=== PATIENT | male | born 1975 | race Caucasian/White ===

== ENCOUNTER 2016-09-30 08:29 | Day surgery (SDC) | payer BC ==
--- NOTE | ~2016-09-30 | EGD ---
EGD REPORT [facility] [address] [id number] NAME: MURALI ESPINOSA : [birth year] [place]US : [place] [facility] [place] [id number] AGE: 40 ADM/REG DATE : 09/30/16 MR#: [id number] REPORT SERV DATE: 09/30/16 DICTATED BY: MARYCRUZ THURSTON DATE: 09/30/16 REPORT STATUS : Draft TRANSCRIBED BY: [employer] DATE: 09/30/16 Endoscopy Center Patient Name: Murali Espinosa Date of : 1975 Attending MD: MARYCRUZ THURSTON MD Procedure Date No Time: 09/30/2016 Procedure: Colonoscopy Indications: Rectal bleeding, Iron deficiency anemia, FH of Colon Cancer -distant relative, Personal history of malignant neoplasm of the colon Referring MD: Blake Kearney Medicines: as per anesthesia Complications: No immediate complications. Procedure: Pre-Anesthesia Assessment: - ASA Grade Assessment: II - A patient with mild systemic disease. After I obtained informed consent, the scope was passed under direct vision. Throughout the procedure, the patient's blood pressure, pulse, and oxygen saturations were monitored continuously. The PCF [id number] was introduced through the anus and advanced to the cecum, identified by appendiceal orifice and ileocecal valve. The colonoscopy was performed without difficulty. The patient tolerated the procedure. The quality of the bowel preparation was adequate to identify polyps. Findings: The perianal and digital rectal examinations were normal. There was evidence of a prior end-to-end colo-colonic anastomosis in the proximal descending colon. This was patent. This was characterized by healthy appearing mucosa. This was traversed. Internal hemorrhoids were found during endoscopy and were mild. Impression: - Patent end-to-end colo-colonic anastomosis. - Internal hemorrhoids. Recommendation: - Repeat colonoscopy in 3 years for surveillance. Procedure Code(s): --- Professional --- 33325, Colonoscopy, flexible, proximal to splenic flexure; diagnostic, with or without collection of specimen(s) by brushing or washing, with or without colon decompression (separate procedure) Diagnosis Code(s): --- Professional --- EGD REPORT [facility] [address] [id number] NAME: MURALI ESPINOSA : [birth year] [place]US : [place] [facility] [place] [id number] AGE: 40 ADM/REG DATE : 09/30/16 MR#: [id number] REPORT SERV DATE: 09/30/16 DICTATED BY: MARYCRUZ THURSTON DATE: 09/30/16 REPORT STATUS : Draft TRANSCRIBED BY: [employer] DATE: 09/30/16 Z98.0, Intestinal bypass and anastomosis status K64.8, Other hemorrhoids K62.5, Hemorrhage of anus and rectum D50.9, Iron deficiency anemia, unspecified Z80.0, Family history of malignant neoplasm of digestive organs Z85.038, Personal history of other malignant neoplasm of large intestine CPT copyright 2013 [employer]. All rights reserved. The codes documented in this report are preliminary and upon control systems specialist review may be revised to meet current compliance requirements. MARYCRUZ THURSTON MD 09/30/2016 11:06 AM This report has been signed electronically. Number of Addenda: 0 Note Initiated On: 09/30/2016 8:08 AM Scope Withdrawal Time 0 hours 9 minutes 24 seconds [address] [id number]
[~2016-09-30 08:29] MED LIST: ATEN25 PO; CALTRA600D PO; HYDROCHLOROT50 MG PO; LIPITOR20 PO; VITAMIN D31000 UNIT PO
== END 2016-09-30 23:59 | disposition home or self-care (01) ==
LOC: DMU 08:29
PROVIDERS: Internal Medicine Gastroenterology
PROC: 0DJD8ZZ Inspection of Lower Intestinal Tract, Via Natural or Artificial Opening Endoscopic (ICD-10-PCS; principal; 2016-09-30 08:00)
DX: K64.8 Other hemorrhoids (principal); D50.9 Iron deficiency anemia, unspecified; E78.00 Pure hypercholesterolemia, unspecified; M19.90 Unspecified osteoarthritis, unspecified site; I10 Essential (primary) hypertension; E66.01 Morbid (severe) obesity due to excess calories; Z85.038 Personal history of other malignant neoplasm of large intestine; Z80.0 Family history of malignant neoplasm of digestive organs; Z98.0 Intestinal bypass and anastomosis status; Z88.0 Allergy status to penicillin; Z90.89 Acquired absence of other organs; Z98.890 Other specified postprocedural states